=== PATIENT | female | born 1955 | race Hispanic/Latino ===

== ENCOUNTER 2017-03-24 03:35 | Emergency (ER) | payer BC ==
[2017-03-24 03:47] VITALS: RESP 16
[2017-03-24] MEDS ORDERED: Sodium Chloride 0.9% 1,000 ML IV ONE (03:49)
[2017-03-24] MEDS ORDERED: Sodium Chloride 0.9% 1,000 ML ONE (04:01)
--- NOTE | 2017-03-24 04:19 | C.PDOC ---
History Of Present Illness Patient presents to ED c/o left sided flank pain that began approx 30 min [employer]. Pain is sharp, intermittent, nonradiating and associated with nausea and several episodes of vomiting. Patient states symptoms feel similar to when she had a kidney stone. She denies fever, abdominal pain, diarrhea, dysuria/ hematuria. urologist - Dr. Michel Time Seen by Provider: 03/24/17 03:42 Chief Complaint (Nursing): Back Pain History Per: Patient History/Exam Limitations: no limitations Onset/Duration Of Symptoms: Other (30 min [employer]) Current Symptoms Are (Timing): Still Present Quality Of Discomfort: "Pain" Severity: Moderate Past Medical History Reviewed: Historical Data, Nursing Documentation, Vital Signs Vital Signs: Last Vital Signs Temp 97.9 F 03/24/17 07:25 Pulse 74 03/24/17 07:25 Resp 16 03/24/17 07:25 BP 157/85 H 03/24/17 07:25 Pulse Ox 97 03/24/17 07:25 - Medical History PMH: Diabetes, Gall Bladder Disease, HTN, TIA Surgical History: Cholecystectomy, (x 2) Other Surgeries: lithotripsy - [facility] Procedures CYSTOSCOPY NEC (12/01/14) INJECT/INFUSE NEC (11/20/14) URETERAL CATHETERIZATION (12/01/14) Family History: States: No Known Family Hx - Social History Hx Alcohol Use: No Hx Substance Use: No Review Of Systems Except As Marked, All Systems Reviewed And Found Negative. Constitutional: Negative for: Fever, Chills Cardiovascular: Negative for: Chest Pain, Palpitations Respiratory: Negative for: Cough, Shortness of Breath Gastrointestinal: Positive for: Nausea, Vomiting, Other (left flank pain). Negative for: Abdominal Pain, Diarrhea Genitourinary: Negative for: Dysuria, Hematuria Physical Exam - Physical Exam Appears: Well, Non-toxic, In Acute Distress (in moderate pain) Oral Mucosa: Moist Cardiovascular: Rhythm Regular Respiratory: Normal Breath Sounds, No Rales, No Rhonchi, No Wheezing Gastrointestinal/Abdominal: Normal Exam, Bowel Sounds, Soft, No Tenderness Back: CVA Tenderness (left ), No Vertebral Tenderness Neurological/Psych: Oriented x3 ED Course And Treatment - Laboratory Results Result Diagrams: 03/24/17 04:20 03/24/17 04:20 O2 Sat by Pulse Oximetry: 98 (room air ) Pulse Ox Interpretation: Normal - CT Scan/US CT ABD/PELVIS Other Rad Studies (CT/US): Read By Radiologist, Radiology Report Reviewed CT/US Interpretation: CT Scan. . . ABD PELVIS W/O PO OR IV CONT Exam Date: 03/24/17. . This imaging exam was performed at [facility]. EXAM: CT Abdomen and Pelvis Without Intravenous Contrast. . EXAM DATE/TIME: 03/24/2017 3:52 AM. . CLINICAL HISTORY: 62 years old, female; Pain; Abdominal pain; Flank; Left; Additional info: Left flank pain R/ O kidney stone. . TECHNIQUE: Axial computed tomography images of the abdomen and pelvis without. intravenous contrast. All CT scans at this facility use one or more dose. reduction techniques, viz.: automated exposure control; ma/ kV adjustment per. patient size (including targeted exams where dose is matched to indication;. i.e. head); or iterative reconstruction technique. . COMPARISON: No relevant prior studies available. . FINDINGS: LOWER THORAX: No infiltrate seen in the lung bases. . ABDOMEN: LIVER: No acute abnormality of the liver identified. GALLBLADDER AND BILE DUCTS: Cholecystectomy clips. PANCREAS: Pancreas is mildly atrophic. No CT evidence of acute pancreatitis. SPLEEN: No acute abnormality of the spleen identified. ADRENALS: No acute abnormality of the adrenal glands identified. KIDNEYS AND URETERS: Punctate 1-2 mm obstructing stone at the left. UVJ/ ureterovesicular junction. This is best seen on image 83 of series 601,. and is causing mild left hydroureteronephrosis. There is also left perinephric. stranding Mild right hydroureteronephrosis and perinephric stranding also. noted, with no definite causative obstructing stones seen. Staghorn type. calculus in the lower pole of the right kidney, measuring 2.5 cm maximally. STOMACH AND BOWEL: No acute abnormality of the stomach, small bowel or colon. identified. No evidence of bowel obstruction. APPENDIX: Appendix is seen, and is within normal limits in appearance. . PELVIS: BLADDER: No acute abnormality of the bladder identified. REPRODUCTIVE: Small calcification in the uterus on the right, compatible. with a fibroid. No evidence of large adnexal masses. . ABDOMEN and PELVIS: INTRAPERITONEAL SPACE: No evidence of free intraperitoneal air or fluid. BONES/JOINTS: No acute fractures or other acute bony abnormality noted. SOFT TISSUES: Small umbilical hernia, containing only fat. VASCULATURE: No evidence of abdominal aortic aneurysm. No evidence of. periaortic hemorrhage. LYMPH NODES: No evidence of diffuse lymphadenopathy. . IMPRESSION: - Punctate 1-2 mm obstructing stone at the left UVJ/ureterovesicular junction. - Mild right hydroureteronephrosis and perinephric stranding, cause not. identified. This could be due to a recently passed stone, however, a. right-sided urinary tract infection could also cause these findings. Recommend. clinical correlation. - 2.5 cm staghorn calculus in the right kidney. - See above for remaining findings. . Dictated By: Marizol Solano MD. Dictated Date/Time: 03/24/17706. Signed By: Marizol Solano MD. Date Signed: 03/24/17706. Transcribed By: FRANDY. Transcribe Date /Time: 03/24/17706. RMMP02/MT Progress Note: Blood work, UA, CT scan abd/pelvis ordered and reviewed. Patient given IV NS bolus, IV toradol. Reevaluation Time: 07:15 Reassessment Condition: Improved (On reassessment, patient is resting comfortably and states she feels much better. CT scan shows 1-2 mm stone at L UVJ, and right sided staghorn calculus inside kidney. Patient made aware, and she understands the small left sided stone is likely the cause of her pain. Patient given PO Flomax, PO Ciprofloxacin. She is comfortable being discharged home, and states she will follow up with her urologist within 1 week. Rxs given for Vicodin, Ciprofloxacin and Flomax. Patient understands she should drink plenty of fluids and return to ED immediately if her symptoms worsen.) Disposition Counseled Patient/Family Regarding: Diagnosis, Need For Followup, Rx Given - Disposition Referrals: Candido Michel Jr., MD [Staff Provider] - Disposition: HOME/ ROUTINE Disposition Time: 07:15 Condition: STABLE Additional Instructions: FOLLOW UP WITH DR MICHEL IN 1-2 DAYS DRINK PLENTY OF FLUIDS USE MEDICATION DIRECTED RETURN TO ER IF SYMPTOMS WORSEN Prescriptions: Ciprofloxacin [Cipro] 1 tab PO BID #14 tab Hydrocodone/Acetaminophen [Hydrocodon-Acetaminophen 5-325] 1 each PO Q6 PRN #15 tablet PRN Reason: Pain, Moderate (4-7) Tamsulosin [Flomax] 0.4 mg PO DAILY #5 cap Instructions: Kidney Stones (DC), Renal Colic (ED) Forms: [facility] (Barbadian) Print Language: DJIBOUTIAN - POA Present On Arrival: None - Clinical Impression Clinical Impression: Kidney stone on left side
[2017-03-24 04:26] LABS: BASO # 0.1 K/uL (0.0-0.2); BASO % 0.8 % (0.0-2.0); EOS # 0.3 K/uL (0.0-0.7); EOS % 2.6 % (0.0-4.0); HEMATOCRIT 39.4 % (34.0-47.0); LYMPH # 3.2 K/uL (1.0-4.3); LYMPH % 26.2 % (20.0-40.0); MEAN CELL VOLUME 82.7 fL (81.0-99.0); MEAN CORPUSCULAR HEMOGLOBIN 27.8 pg (27.0-31.0); MEAN CORPUSCULAR HGB CONC 33.6 g/dL (33.0-37.0); MEAN PLATELET VOLUME 7.2 fL (7.2-11.7); MONO # 0.9 K/uL (0.0-0.8); NRBC % 0.1 % (0.0-2.0); RED CELL DISTRIBUTION WIDTH 13.9 % (11.5-14.5); WHITE BLOOD COUNT 12.4 K/uL (4.8-10.8)
[2017-03-24 04:34] LABS: CHLORIDE 107 mmol/L (98-107); POTASSIUM 3.8 mmol/L (3.6-5.2); SODIUM 142 mmol/L (132-148)
[2017-03-24 04:36] LABS: RBC URINE 152 /hpf (0-3); URINE BACTERIA RARE (<OCC); URINE BILIRUBIN NEGATIVE (NEGATIVE); URINE BLOOD 2+ (NEGATIVE); URINE COLOR Yellow (YELLOW); URINE GLUCOSE (UA) NORMAL (Normal); URINE KETONE NEGATIVE (NEGATIVE); URINE LEUKOCYTE ESTERASE 3+ Leu/uL (Negative); URINE PROTEIN 1+ mg/dL (NEGATIVE); URINE UROBILINOGEN NORMAL mg/dL (0.2-1.0); WBC CLUMPS MANY /hpf; WBC URINE 693 /hpf (0-5)
[2017-03-24 04:36] LABS: GFR AFRICAN-AMERICAN > 60
[2017-03-24 04:37] LABS: ALKALINE PHOSPHATASE 139 U/L (38-126); ALT/SGPT 24 U/L (9-52); AST/SGOT 15 U/L (14-36); BILIRUBIN,TOTAL 0.5 mg/dL (0.2-1.3); BLOOD UREA NITROGEN 18 mg/dL (7-17); CALCIUM 9.9 mg/dl (8.6-10.4); CARBON DIOXIDE 22 mmol/L (22-30); GLUCOSE,RANDOM 190 mg/dL (65-105)
--- NOTE | 2017-03-24 07:07 | CT ---
EXAM: CT Abdomen and Pelvis Without Intravenous Contrast EXAM DATE/TIME: 03/24/2017 3:52 AM CLINICAL HISTORY: 62 years old, female; Pain; Abdominal pain; Flank; Left; Additional info: Left flank pain R/O kidney stone TECHNIQUE: Axial computed tomography images of the abdomen and pelvis without intravenous contrast. All CT scans at this facility use one or more dose reduction techniques, viz.: automated exposure control; ma/kV adjustment per patient size (including targeted exams where dose is matched to indication; i.e. head); or iterative reconstruction technique. COMPARISON: No relevant prior studies available. FINDINGS: LOWER THORAX: No infiltrate seen in the lung bases. ABDOMEN: LIVER: No acute abnormality of the liver identified. GALLBLADDER AND BILE DUCTS: Cholecystectomy clips. PANCREAS: Pancreas is mildly atrophic. No CT evidence of acute pancreatitis. SPLEEN: No acute abnormality of the spleen identified. ADRENALS: No acute abnormality of the adrenal glands identified. KIDNEYS AND URETERS: Punctate 1-2 mm obstructing stone at the left UVJ/ureterovesicular junction. This is best seen on image 83 of series 601, and is causing mild left hydroureteronephrosis. There is also left perinephric stranding Mild right hydroureteronephrosis and perinephric stranding also noted, with no definite causative obstructing stones seen. Staghorn type calculus in the lower pole of the right kidney, measuring 2.5 cm maximally. STOMACH AND BOWEL: No acute abnormality of the stomach, small bowel or colon identified. No evidence of bowel obstruction. APPENDIX: Appendix is seen, and is within normal limits in appearance. PELVIS: BLADDER: No acute abnormality of the bladder identified. REPRODUCTIVE: Small calcification in the uterus on the right, compatible with a fibroid. No evidence of large adnexal masses. ABDOMEN and PELVIS: INTRAPERITONEAL SPACE: No evidence of free intraperitoneal air or fluid. BONES/JOINTS: No acute fractures or other acute bony abnormality noted. SOFT TISSUES: Small umbilical hernia, containing only fat. VASCULATURE: No evidence of abdominal aortic aneurysm. No evidence of periaortic hemorrhage. LYMPH NODES: No evidence of diffuse lymphadenopathy. IMPRESSION: - Punctate 1-2 mm obstructing stone at the left UVJ/ureterovesicular junction. - Mild right hydroureteronephrosis and perinephric stranding, cause not identified. This could be due to a recently passed stone, however, a right-sided urinary tract infection could also cause these findings. Recommend clinical correlation. - 2.5 cm staghorn calculus in the right kidney. - See above for remaining findings.
[2017-03-24 07:26] VITALS: BP 157/85; PULSE 74; TEMP 97.9
[2017-03-29 18:13] VITALS: O2SAT 98
== END 2017-03-24 07:26 | disposition home or self-care (01) ==
LOC: C.ER 03:35
DX: N13.2 Hydronephrosis with renal and ureteral calculous obstruction (principal)
CPT/HCPCS: 74176; 80053; 81001; 83690; 85025; 87086; 96374; 96375; 99284; J1885; J2405; J7040

== ENCOUNTER 2018-06-02 06:14 | Emergency (ER) | payer BC ==
[2018-06-02 06:42] LABS: BASO # 0.1 K/uL (0.0-0.2); BASO % 0.5 % (0.0-2.0); EOS # 0.4 K/uL (0.0-0.7); EOS % 3.9 % (0.0-4.0); LYMPH # 2.4 K/uL (1.0-4.3); LYMPH % 23.1 % (20.0-40.0); MEAN CELL VOLUME 82.3 fL (81.0-99.0); MEAN CORPUSCULAR HEMOGLOBIN 27.8 pg (27.0-31.0); MEAN CORPUSCULAR HGB CONC 33.7 g/dL (33.0-37.0); MEAN PLATELET VOLUME 8.1 fL (7.2-11.7); MONO # 0.7 K/uL (0.0-0.8); MONO % 6.6 % (0.0-10.0); NEUT # 6.9 K/uL (1.8-7.0); NEUT % 65.9 % (50.0-75.0); RBC 5.39 Mil/uL (3.80-5.20); RED CELL DISTRIBUTION WIDTH 13.9 % (11.5-14.5); WHITE BLOOD COUNT 10.5 K/uL (4.8-10.8)
--- NOTE | 2018-06-02 06:45 | C.PDOC ---
Addendum entered and electronically signed by Kwabena Alexis DO 06/02/18 08:06: Addendum Addendum: 06/02/18 07:20 CT Head FINDINGS: HEMORRHAGE: No intracranial hemorrhage. BRAIN: No mass effect or edema. Scattered focal lucencies in the subcortical and periventricular white matter suggestive for chronic microvascular ischemic yan nge. Punctate hypodensity in the left basal ganglia may represent a small lacunar infarct versus prominent perivascular space. VENTRICLES: Unremarkable. No hydrocephalus. CALVARIUM: Unremarkable. PARANASAL SINUSES: Unremarkable as visualized. No significant inflammatory changes MASTOID AIR CELLS: Unremarkable as visualized. No inflammatory changes. OTHER FINDINGS: IMPRESSION: No acute intracranial abnormality. Chronic microvascular ischemic changes. If symptoms persists, consider correlation with MRI. 06/02/18 08:04 On reassessment, patient reports improvement in symptoms. Patient given dose of Lisinopril and Coreg; patient also given Tylenol 650mg PO. Patient to be discharged home with 1 week prescription for Lisinopril and Coreg; patient instructed to follow up with PMD without fail. Original Note: History Of Present Illness patient woke up with a severe headache. Pt has been non compliant with her meds - has not been taking her metformin or any of her blood pressure meds for a few months. No slurred speech, weakness Time Seen by Provider: 06/02/18 06:42 Chief Complaint (Nursing): Headache History Per: Patient History/Exam Limitations: no limitations Onset/Duration Of Symptoms: Hrs Current Symptoms Are (Timing): Still Present Severity: Moderate Pain Scale Rating Of: 4 Reports Recently: Treated By A Physician Recent travel outside of the [place] States: No Additional History Per: Family Past Medical History Vital Signs: Last Vital Signs Temp 98 F 06/02/18 06:20 Pulse 86 06/02/18 06:20 Resp 16 06/02/18 06:20 BP 215/96 H 06/02/18 06:20 Pulse Ox 98 06/02/18 06:20 - Medical History PMH: Diabetes, Gall Bladder Disease, HTN, TIA Denies: HIV Surgical History: Cholecystectomy, (x 2) - [facility] Procedures CYSTOSCOPY NEC (12/01/14) INJECT/INFUSE NEC (11/20/14) URETERAL CATHETERIZATION (12/01/14) Family History: States: Unknown Family Hx - Social History Hx Alcohol Use: No Hx Substance Use: No - Immunization History Hx Tetanus Toxoid Vaccination: No Hx Influenza Vaccination: No Hx Pneumococcal Vaccination: No Review Of Systems Constitutional: Negative for: Fever, Chills Eyes: Negative for: Vision Change ENT: Negative for: Throat Pain Cardiovascular: Negative for: Chest Pain Respiratory: Negative for: Shortness of Breath Gastrointestinal: Negative for: Nausea, Vomiting, Abdominal Pain Genitourinary: Negative for: Dysuria Musculoskeletal: Negative for: Back Pain Skin: Negative for: Rash Neurological: Positive for: Headache. Negative for: Weakness Psych: Positive for: Anxiety Physical Exam - Physical Exam Appears: Non-toxic, No Acute Distress Skin: Warm, Dry Head: Normacephalic Eye(s): bilateral: Normal Inspection Oral Mucosa: Moist Neck: Supple Chest: Symmetrical Cardiovascular: Rhythm Regular Respiratory: No Rales, No Rhonchi, No Wheezing Gastrointestinal/Abdominal: Soft, No Tenderness, No Distention Back: Normal Inspection Extremity: Normal ROM Extremity: Bilateral: Atraumatic, Normal Color And Temperature Pulses: Left Dorsalis Pedis: Normal, Right Dorsalis Pedis: Normal Neurological/Psych: Oriented x3, Normal Speech, Normal Cognition Gait: Steady ED Course And Treatment ECG: Interpreted By Me, Viewed By Me ECG Rhythm: Sinus Rhythm (89), Nonspecific Changes O2 Sat by Pulse Oximetry: 98 Pulse Ox Interpretation: Normal - Radiology CXR: Interpreted by Me, Viewed By Me NIHSS Stroke Scale - Date/Time Evaluation Performed Date Performed: 06/02/18 Time Performed: 06:22 When Was NIHSS Performed: Baseline - How Severe is the Stroke Level of Consciousness: 0=Alert LOC to Questions: 0=Both comments correct LOC to commands: 0=Obeys both correctly Best Gaze: 0=Normal Visual: 0=No visual loss Facial: 0=Normal Motor Arm - Left: 0=No drift Motor Arm - Right: 0=No drift Motor Leg - Left: 0=No drift Motor Leg - Right: 0=No drift Limb Ataxia: 0=Absent Sensory: 0=Normal Best Language: 0=No aphasia Dysarthia: 0=Normal articulation Extinction & Inattention (Neglect): 0=Normal, no object Score: 0 Severity Of Stroke: 0 = No Stroke Disposition Counseled Patient/Family Regarding: Studies Performed, Diagnosis - Disposition Referrals: Miguel Mccracken MD [Primary Care Provider] - Disposition Time: 06:54 Condition: FAIR Forms: [facility] (Occitan) - Clinical Impression Clinical Impression: Headache, Hypertension Physician Patient Turnover Patient Signed Over To: Kwabena Alexis Handoff Comments: pending ct, labs and disposition
[2018-06-02 06:53] LABS: INR 1.1; PROTHROMBIN TIME 11.5 SECONDS (9.7-12.2)
[2018-06-02 06:55] LABS: ALBUMIN 4.2 g/dL (3.5-5.0); ALT/SGPT 21 U/L (9-52); AST/SGOT 23 U/L (14-36); BLOOD UREA NITROGEN 16 mg/dL (7-17); CALCIUM 11.5 mg/dl (8.6-10.4); GFR NON-AFRICAN AMERICAN > 60
[2018-06-02 06:59] VITALS: RESP 20
[2018-06-02 07:17] LABS: VENOUS BLOOD GAS BASE EXCESS 2.2 mmol/L (0.0-2.0); VENOUS BLOOD GAS PCO2 46 mmHg (40-60); VENOUS BLOOD GAS PO2 36 mm/Hg (30-55); VENOUS BLOOD PH 7.39 (7.32-7.43)
--- NOTE | 2018-06-02 07:24 | CT ---
Date of service: 06/02/2018 PROCEDURE: CT HEAD WITHOUT CONTRAST. HISTORY: headache COMPARISON: None available. TECHNIQUE: Axial computed tomography images were obtained through the head/brain without intravenous contrast. Radiation dose: Total exam DLP = 1003.18 mGy-cm. This CT exam was performed using one or more of the following dose reduction techniques: Automated exposure control, adjustment of the mA and/or kV according to patient size, and/or use of iterative reconstruction technique. FINDINGS: HEMORRHAGE: No intracranial hemorrhage. BRAIN: No mass effect or edema. Scattered focal lucencies in the subcortical and periventricular white matter suggestive for chronic microvascular ischemic change. Punctate hypodensity in the left basal ganglia may represent a small lacunar infarct versus prominent perivascular space. VENTRICLES: Unremarkable. No hydrocephalus. CALVARIUM: Unremarkable. PARANASAL SINUSES: Unremarkable as visualized. No significant inflammatory changes. MASTOID AIR CELLS: Unremarkable as visualized. No inflammatory changes. OTHER FINDINGS: IMPRESSION: No acute intracranial abnormality. Chronic microvascular ischemic changes. If symptoms persists, consider correlation with MRI.
[2018-06-02 08:13] LABS: SQUAMOUS EPITHIAL < 1 /hpf (0-5); URINE BACTERIA RARE (<OCC); URINE BILIRUBIN NEGATIVE (NEGATIVE); URINE BLOOD 1+ (NEGATIVE); URINE CLARITY Hazy (Clear); URINE COLOR Straw (YELLOW); URINE GLUCOSE (UA) 3+ mg/dL (Normal); URINE LEUKOCYTE ESTERASE 3+ Leu/uL (Negative); URINE PROTEIN NEGATIVE (NEGATIVE); URINE UROBILINOGEN NORMAL mg/dL (0.2-1.0)
[2018-06-02 08:33] VITALS: BP 151/92; PULSE 81; TEMP 98; O2SAT 98
--- NOTE | 2018-06-03 11:48 | CARD ---
APPROVED REPORT Date of service: 06/02/2018 EKG Measurement Heart [id number] <Conclusion> Normal sinus rhythm Moderate voltage criteria for LVH, may be normal variant Borderline ECG
== END 2018-06-02 08:36 | disposition home or self-care (01) ==
LOC: SUPCPDRO 06:14 → C.ER 06:14
DX: R51 Headache (principal); I10 Essential (primary) hypertension; E11.9 Type 2 diabetes mellitus without complications; Z86.73 Personal history of transient ischemic attack (TIA), and cerebral infarction without residual deficits

== ENCOUNTER 2018-10-26 08:58 | Emergency (ER) | payer BC ==
[2018-10-26 09:05] VITALS: RESP 18
[2018-10-26] MEDS ORDERED: Sodium Chloride 0.9% 500 ML IV ONE ×2 (09:35→10:17)
--- NOTE | 2018-10-26 09:43 | C.PDOC ---
History Of Present Illness Patient is a 63 year old female with a past medical history of HTN, HLD, DM, and TIAx2, who presents with complaints of right sided flank pain. She woke up this morning at 6am with bilateral flank pain, worse on the right, and mild nausea. She states the pain was similar to when she had kidney stones in the past (2015,2017), so she came to the hospital. She recently saw her PMD on Friday for lab results and was told she has blood and bacteria in the urine. She was not prescribed anything and was given a 24-hour urine collection to start today. She currently denies pain, burning, blood with urination, fevers, chills, dyspnea, chest pain, palpitations, nausea, vomiting, abdominal pain, leg pain, dizziness, headaches. PMHx: HTN, HLD, DM, Kidney Stones, TIA (x2, 10+years ago) SurgHx: Left ankle surgery (10+yrs ago), cholecystectomy, c-sections x2 FamHx: Mother/Father- HTN, DM SocHx: denies tobacco, alcohol, and drug use Allergies: NKDA Medications: Metformin 500mg TID, Carvedilol 10mg BID, Amlodipine 5mg PO daily, Glipizide 5mg PO daily, Famotidine 20mg PO daily, Simvastatin 20mg PO daily, Vit D 50,000u weekly. <Lien Bliss - Last Filed: 10/26/18 13:10> <Priscila Lyle - Last Filed: 10/26/18 12:43> History Per: Patient History/Exam Limitations: no limitations Onset/Duration Of Symptoms: Hrs Current Symptoms Are (Timing): Still Present Severity: Moderate Pain Scale Rating Of: 5 Quality Of Discomfort: Aching, Pressure, "Pain" Associated Symptoms: Nausea, Back Pain. denies: Fever, Chills, Vomiting, Diarrhea, Loss Of Appetite, Chest Pain, Urinary Symptoms Additional History Per: Family <Lien Bliss - Last Filed: 10/26/18 13:10> Time Seen by Provider: 10/26/18 09:07 Chief Complaint (Nursing): Female Genitourinary Past Medical History Vital Signs: Last Vital Signs Temp 98.6 F 10/26/18 11:30 Pulse 69 10/26/18 11:30 Resp 18 10/26/18 11:30 BP 123/77 10/26/18 11:30 Pulse Ox 98 10/26/18 11:36 - [facility] Procedures CYSTOSCOPY NEC (12/01/14) INJECT/INFUSE NEC (11/20/14) URETERAL CATHETERIZATION (12/01/14) <Priscila Lyle - Last Filed: 10/26/18 12:43> Vital Signs: Last Vital Signs Temp 97.7 F 10/26/18 09:02 Pulse 79 10/26/18 09:02 Resp 18 10/26/18 09:02 BP 161/89 H 10/26/18 09:02 Pulse Ox 98 10/26/18 09:02 - Medical History PMH: Diabetes, Gall Bladder Disease, HTN, Kidney Stones, Chronic Kidney Disease, TIA Denies: HIV Surgical History: Cholecystectomy, (x 2) - [facility] Procedures CYSTOSCOPY NEC (12/01/14) INJECT/INFUSE NEC (11/20/14) URETERAL CATHETERIZATION (12/01/14) Family History: States: Unknown Family Hx - Social History Hx Alcohol Use: No Hx Substance Use: No - Immunization History Hx Tetanus Toxoid Vaccination: No Hx Influenza Vaccination: No Hx Pneumococcal Vaccination: No <Lien Bliss - Last Filed: 10/26/18 13:10> Review Of Systems Constitutional: Negative for: Fever, Chills Eyes: Negative for: Vision Change Cardiovascular: Negative for: Chest Pain, Palpitations, Edema Respiratory: Negative for: Shortness of Breath Gastrointestinal: Positive for: Nausea. Negative for: Vomiting, Abdominal Pain, Diarrhea, Constipation Genitourinary: Negative for: Dysuria, Frequency, Incontinence, Hematuria, Pelvic Pain Musculoskeletal: Positive for: Back Pain (R>L). Negative for: Leg Pain Neurological: Negative for: Dizziness <Lien Bliss - Last Filed: 10/26/18 13:10> Physical Exam - Physical Exam Appears: Non-toxic, No Acute Distress Skin: Normal Color, Warm, Dry Head: Normacephalic Eye(s): bilateral: Normal Inspection, EOMI Cardiovascular: Rhythm Regular, No Murmur Respiratory: Normal Breath Sounds, No Accessory Muscle Use, No Rales, No Rhonchi, No Wheezing Gastrointestinal/Abdominal: Normal Exam, Bowel Sounds, Soft, No Tenderness, No Distention, No Guarding Back: CVA Tenderness (Right sided) Extremity: Normal ROM, No Tenderness, No Pedal Edema, No Calf Tenderness, No Swelling Extremity: Bilateral: No Pedal Edema, Normal Color And Temperature Pulses: Left Dorsalis Pedis: Normal, Right Dorsalis Pedis: Normal Neurological/Psych: Oriented x3, Normal Speech, Normal Cognition <Lien Bliss - Last Filed: 10/26/18 13:10> ED Course And Treatment - Laboratory Results Result Diagrams: 10/26/18 10:05 10/26/18 10:05 Lab Results: Total Bilirubin 0.5 mg/dL (0.2-1.3) 10/26/18 10:05 AST 24 U/L (14-36) 10/26/18 10:05 ALT < 6 U/L (9-52) L D 10/26/18 10:05 Alkaline Phosphatase 124 U/L (38-126) 10/26/18 10:05 Total Protein 7.8 g/dL (6.3-8.3) 10/26/18 10:05 Albumin 4.3 g/dL (3.5-5.0) 10/26/18 10:05 Globulin 3.5 gm/dL (2.2-3.9) 10/26/18 10:05 Albumin/Globulin Ratio 1.2 (1.0-2.1) 10/26/18 10:05 Urine Color Yellow (YELLOW) 10/26/18 10:13 Urine Clarity Hazy (Clear) 10/26/18 10:13 Urine pH 5.0 (5.0-8.0) 10/26/18 10:13 Ur Specific Robbins 1.018 (1.003-1.030) 10/26/18 10:13 Urine Protein 1+ mg/dL (NEGATIVE) H 10/26/18 10:13 Urine Glucose (UA) 1+ mg/dL (Normal) 10/26/18 10:13 Urine Ketones Negative mg/dL (NEGATIVE) 10/26/18 10:13 Urine Blood 2+ (NEGATIVE) H 10/26/18 10:13 Urine Nitrate Negative (NEGATIVE) 10/26/18 10:13 Urine Bilirubin Negative (NEGATIVE) 10/26/18 10:13 Urine Urobilinogen Normal mg/dL (0.2-1.0) 10/26/18 10:13 Ur Leukocyte Esterase 3+ Tonia/uL (Negative) H 10/26/18 10:13 Urine WBC (Auto) 564 /hpf (0-5) H 10/26/18 10:13 Urine RBC (Auto) 57 /hpf (0-3) H 10/26/18 10:13 Ur Squamous Epith Cells 10 /hpf (0-5) H 10/26/18 10:13 Urine Bacteria Occ (<OCC) H 10/26/18 10:13 - CT Scan/US ct abd/pelvis Other Rad Studies (CT/US): Read By Radiologist, Radiology Report Reviewed CT/US Interpretation: Accession No. : [id number]. Patient Name / ID : GIRISH MERRILL / [id number]. Exam Date : 10/26/2018 09:59:42 ( Approved ). Study Comment : Sex / Age : F / 63Y. Creator : Radha Arriaga. Dictator : Anita Escobar MD. Production Laborer : Clean Out Driller : Anita Escobar MD. Approver2 : Report Date : 10/26/2018 10:15:22. My Comment : . PROCEDURE: CT Abdomen and Pelvis without Oral or IV contrast. HISTORY: flank pain, hx of kidney stones. COMPARISON: CT abdomen and pelvis without contrast performed 03/24/17. TECHNIQUE: Contiguous axial images of the abdomen and pelvis. No oral or IV contrast administered. Coronal and Sagittal reformats generated and reviewed. Radiation dose: Total exam DLP = 1152.22 mGy-cm. This CT exam was performed using one or more of the following dose reduction techniques: Automated exposure control, adjustment of the mA and/or kV according to patient size, and/or use of iterative reconstruction technique. FINDINGS: There is l imited evaluation of the solid organs without the administration of IV contrast. LOWER THORAX: No visible consolidation, pleural effusion, or pneumothorax. LIVER: Unremarkable unenhanced appearance. GALLBLADDER AND BILE DUCTS: Cholecystectomy clips. PANCREAS: Fatty atrophy of the pancreas. SPLEEN: Unremarkable unenhanced appearance. ADRENALS: Unremarkable unenhanced appearance. KIDNEYS AND URETERS: Large staghorn type calculus at the right lower pole kidney. Fullness of the proximal right ureter and collecting system. Left-sided hydronephrosis. BLADDER: Mildly thick-walled under distended urinary bladder. REPRODUCTIVE: Uterus is present. Uterine calcifications presumably due to degenerating fibroids.. APPENDIX: The appendix appears within normal limits of caliber. No secondary signs of acute appendicitis. BOWEL: The stomach is nondistended. Lack of oral contrast limits evaluation for bowel pathology. The bowel loops appear within normal limits of caliber without evidence of intestinal obstruction. Diverticulosis without CT evidence of acute diverticulitis. PERITONEUM: No significant free fluid. No definite free air. LYMPH NODES: No bulky lymphadenopathy identified. VASCULATURE: Atherosclerotic calcifications of the aorta. No aortic aneurysm. BONES: Degenerative changes of the spine. OTHER FINDINGS: Fat containing ventral hernia. IMPRESSION: Large staghorn type calculus, right lower pole kidney. Fullness of the proximal right ureter and collecting system. Additional findings as above. <Priscila Lyle - Last Filed: 10/26/18 12:43> - Laboratory Results Result Diagrams: 10/26/18 10:05 10/26/18 10:05 O2 Sat by Pulse Oximetry: 98 Progress Note: Plan: Ordered CBC, CMP, Urinalysis, Urine Culture, Abdomen/pelvic CT w/o contrast, IV fluids, and Toradol 30mg IV for pain. Ordered Rocephin 1gm IV for UTI; however, patient declined. Patient requesting to go home. Advised patient to follow up with urologist, Dr. Hoff. Patient provided with prescriptions for cipro and flomax and advised to return if symptoms worsen of if patient develops fever, chills, or other signs of infection. <Lien Bliss - Last Filed: 10/26/18 13:10> Disposition Counseled Patient/Family Regarding: Studies Performed, Diagnosis, Need For Followup, Rx Given - Disposition Disposition Time: 12:45 <Priscila Lyle - Last Filed: 10/26/18 12:43> <Lien Bliss - Last Filed: 10/26/18 13:10> - Disposition Referrals: Candido Hoff Jr., MD [Staff Provider] - Disposition: HOME/ ROUTINE Condition: STABLE Additional Instructions: FOLLOW UP WITH YOUR UROLOGIST WITHIN 1 WEEK USE MEDICATIONS DIRECTED DRINK PLENTY OF FLUIDS RETURN TO ER IF SYMPTOMS WORSEN Prescriptions: Ciprofloxacin [Cipro] 1 tab PO BID #14 tab Hydrocodone/Acetaminophen [Hydrocodone-Acetamin 5-325 mg] 1 each PO Q6 PRN #15 tablet PRN Reason: PAIN Tamsulosin [Flomax] 0.4 mg PO DAILY #5 cap Instructions: Urinary Tract Infection, Adult (DC), Renal Colic (DC) Forms: [employer] (Maori) Print Language: [place] - Clinical Impression Clinical Impression: Renal colic, UTI (urinary tract infection)
[2018-10-26 10:17] LABS: BASO # 0.1 K/uL (0.0-0.2); BASO % 0.8 % (0.0-2.0); EOS # 0.3 K/uL (0.0-0.7); HEMOGLOBIN 14.2 g/dL (11.0-16.0); LYMPH # 2.7 K/uL (1.0-4.3); LYMPH % 29.6 % (20.0-40.0); MEAN CORPUSCULAR HGB CONC 33.3 g/dL (33.0-37.0); MONO # 0.7 K/uL (0.0-0.8); MONO % 7.6 % (0.0-10.0); NEUT # 5.4 K/uL (1.8-7.0); NRBC % 0.1 % (0.0-2.0); RBC 5.08 Mil/uL (3.80-5.20); RED CELL DISTRIBUTION WIDTH 14.2 % (11.5-14.5); WHITE BLOOD COUNT 9.2 K/uL (4.8-10.8)
[2018-10-26 10:22] LABS: SQUAMOUS EPITHIAL 10 /hpf (0-5); URINE BACTERIA OCC (<OCC); URINE BILIRUBIN NEGATIVE (NEGATIVE); URINE BLOOD 2+ (NEGATIVE); URINE CLARITY Hazy (Clear); URINE COLOR Yellow (YELLOW); URINE GLUCOSE (UA) 1+ mg/dL (Normal); URINE LEUKOCYTE ESTERASE 3+ Leu/uL (Negative); URINE PROTEIN 1+ mg/dL (NEGATIVE); URINE UROBILINOGEN NORMAL mg/dL (0.2-1.0)
[2018-10-26 10:27] LABS: ALB/GLOB RATIO 1.2 (1.0-2.1); ALBUMIN 4.3 g/dL (3.5-5.0); BLOOD UREA NITROGEN 14 mg/dL (7-17); CALCIUM 10.8 mg/dl (8.6-10.4); GFR NON-AFRICAN AMERICAN > 60
[2018-10-26 10:29] LABS: ALT/SGPT < 6 U/L (9-52); AST/SGOT 24 U/L (14-36)
[2018-10-26 11:32] VITALS: BP 123/77; PULSE 69; TEMP 98.6
[2018-10-26 11:36] VITALS: O2SAT 98
--- NOTE | 2018-10-26 11:40 | CT ---
PROCEDURE: CT Abdomen and Pelvis without Oral or IV contrast. HISTORY: flank pain, hx of kidney stones COMPARISON: CT abdomen and pelvis without contrast performed 03/24/17 TECHNIQUE: Contiguous axial images of the abdomen and pelvis. No oral or IV contrast administered. Coronal and Sagittal reformats generated and reviewed. Radiation dose: Total exam DLP = 1152.22 mGy-cm. This CT exam was performed using one or more of the following dose reduction techniques: Automated exposure control, adjustment of the mA and/or kV according to patient size, and/or use of iterative reconstruction technique. FINDINGS: There is limited evaluation of the solid organs without the administration of IV contrast. LOWER THORAX: No visible consolidation, pleural effusion, or pneumothorax. LIVER: Unremarkable unenhanced appearance. GALLBLADDER AND BILE DUCTS: Cholecystectomy clips. PANCREAS: Fatty atrophy of the pancreas. SPLEEN: Unremarkable unenhanced appearance. ADRENALS: Unremarkable unenhanced appearance. KIDNEYS AND URETERS: Large staghorn type calculus at the right lower pole kidney. Fullness of the proximal right ureter and collecting system. Left-sided hydronephrosis. BLADDER: Mildly thick-walled under distended urinary bladder. REPRODUCTIVE: Uterus is present. Uterine calcifications presumably due to degenerating fibroids.. APPENDIX: The appendix appears within normal limits of caliber. No secondary signs of acute appendicitis. BOWEL: The stomach is nondistended. Lack of oral contrast limits evaluation for bowel pathology. The bowel loops appear within normal limits of caliber without evidence of intestinal obstruction. Diverticulosis without CT evidence of acute diverticulitis. PERITONEUM: No significant free fluid. No definite free air. LYMPH NODES: No bulky lymphadenopathy identified. VASCULATURE: Atherosclerotic calcifications of the aorta. No aortic aneurysm. BONES: Degenerative changes of the spine. OTHER FINDINGS: Fat containing ventral hernia. IMPRESSION: Large staghorn type calculus, right lower pole kidney. Fullness of the proximal right ureter and collecting system. Additional findings as above.
== END 2018-10-26 13:19 | disposition home or self-care (01) ==
LOC: C.ER 08:58
DX: N13.2 Hydronephrosis with renal and ureteral calculous obstruction (principal); N39.0 Urinary tract infection, site not specified; Z87.442 Personal history of urinary calculi
CPT/HCPCS: 74176; 80053; 81001; 85025; 87086; 99284; J7040

== ENCOUNTER 2018-10-30 09:17 | Outpatient (CLI) | payer BC | END 2018-10-30 09:18 | disposition home or self-care (01) | LOC: C.RADH 09:17 ==

== ENCOUNTER 2018-12-04 09:22 | Outpatient (CLI) | payer BC | END 2018-12-04 09:23 | disposition home or self-care (01) | LOC: C.RADH 09:22 ==

== ENCOUNTER 2018-12-14 11:39 | Day surgery (SDC) | payer BC ==
[2018-12-10 13:55] VITALS: BMI 35.7
[2018-12-14] MEDS ORDERED: Gentamicin 160 MG in Sodium Chloride 0.9% 100 ML IVPB ONE (15:12)
[2018-12-14] MEDS ORDERED: Ciprofloxacin 400mg/200ml D5W 400 MG/200 ML BAG IVPB STA (15:16)
[2018-12-14] MEDS ORDERED: Propofol 10 mg/ml Inj (20 ML) ONE (15:50)
[2018-12-14] MEDS ORDERED: Lidocaine Hydrochloride 5 ML INJ ONE (15:50)
[2018-12-14] MEDS ORDERED: Midazolam 2 MG/2 ML VIAL ONE (15:50)
[2018-12-14] MEDS ORDERED: HYDROmorphone 0.5 mg/0.5 ml ISec IVP PRN (16:04)
[2018-12-14] MEDS ORDERED: Lidocaine 2% Jelly (Uro-Jet) ONE (16:08)
--- NOTE | 2018-12-14 16:10 | PCM.SURG1 ---
Surgeon's Initial Post Op Note - Surgeon's Notes Surgeon: Luis Eduardo French Professor: tyler Type of Anesthesia: General LMA Anesthesia Administered By: Staff Pre-Operative Diagnosis: Renal calculi/ureteralcalculistent Operative Findings: Renal and ureteral calculi/stent Post-Operative Diagnosis: same Operation Performed: Cysto and removal of calculi Specimen/Specimens Removed: stent Estimated Blood Loss: EBL {In ML}: 0 Blood Products Given: N/A Drains Used: No Drains Post-Op Condition: Good Date of Surgery/Procedure: 12/14/18 Time of Surgery/Procedure: 16:10
[2018-12-14 17:32] VITALS: BP 145/73; RESP 18; TEMP 97.8
[2018-12-14 18:06] VITALS: PULSE 78; O2SAT 98
--- NOTE | 2018-12-15 09:26 | RAD ---
Date of service: 12/14/2018 HISTORY: RT CALCULI COMPARISON: 12/04/[address] abdomen and pelvis without contrast 10/26/2018 TECHNIQUE: Two views view obtained. FINDINGS: Preliminary esthetician/owner image shows a double-J right ureteral stent in place. Right hemipelvic coarse calcification present as before-per the after mentioned CT this is a coarse calcification of the degenerating intrauterine fibroid. Calcific conglomerate oval staghorn calculus over proximal right ureteral coil-similar Right upper quadrant cholecystectomy clips Study labeled post shows removal of the right ureteral stent the persistent similar-appearing calcifications right upper quadrant-staghorn calcification in right hemipelvic calcification BOWEL: Normal. No obstruction. No free air. BONES: The lumbar spondylosis. L4-5 facet hypertrophic arthrosis. Bilateral hip arthrosis. OTHER FINDINGS: No gross additional calculi along the right ureteral stent or coarse appreciated. IMPRESSION: The right staghorn calculus is similar. Right hemipelvic calcification-a calcified degenerating uterine fibroid. Post study-interval removal of right ureteral double-J stent.
--- NOTE | 2018-12-15 19:19 | OP ---
PROCEDURE DATE: 12/14/2018 PREOPERATIVE DIAGNOSES: Indwelling double-J stent and multiple renal calculi and ureteral calculi. POSTOPERATIVE DIAGNOSES: Multiple renal and ureteral calculi. DESCRIPTION OF PROCEDURE: Prior to the procedure, a KUB was taken and the patient was informed there are still stones remaining in the urinary system, one in the lower ureter and one in the renal pelvis. She wished to have the stent removed because it was uncomfortable. She is aware that she may have renal colic after the procedure and agreed to have the stent removed despite the risks. Once in the room and after the KUB was obtained, the patient was placed in the lithotomy position and adequate anesthesia achieved. She was cystoscoped with #21 Storz panendoscope, and the tip of the stent was seen in the bladder on the right side. The remainder of the bladder was normal. There were no stones within the bladder. The tip was grasped and the entire stent was removed. The patient will be kept on Flomax and suggested that she follow up in our office in appropriately one to two weeks and retain the stone in a dry container if she passes. Candido Hoff MD
== END 2018-12-14 17:55 | disposition home or self-care (01) ==
LOC: C.SDS 11:39
PROVIDERS: ATTEND Urology
DX: N20.2 Calculus of kidney with calculus of ureter (principal)
CPT/HCPCS: 52310; 74018; 82948; 88300; J0744; J1580; J7030

== ENCOUNTER 2018-12-24 09:09 | Outpatient (CLI) | payer BC | END 2018-12-24 09:10 | disposition home or self-care (01) | LOC: C.RADH 09:09 ==